=== PATIENT | female | born 1965 | race Caucasian/White ===

== ENCOUNTER 2021-08-05 06:31 | Day surgery (SDC) | payer BC ==
[2021-08-05] MEDS ORDERED: Sodium Chloride 0.9% 1,000 ML IV SCH (07:00)
[2021-08-05] MEDS ORDERED: fentaNYL 100 MCG/2 ML SDV ONE (07:36)
[2021-08-05] MEDS ORDERED: Midazolam 1 MG/ML 2 ML SDV ONE (07:36)
[2021-08-05] MEDS ORDERED: Propofol 200 MG/20 ML SDV ONE (07:36)
--- NOTE | 2021-08-05 11:38 | OR ---
DATE OF PROCEDURE: 08/05/2021 SURGEON: Tai Brock MD PROCEDURE: Colonoscopy. FINDINGS: Normal colonoscopy. COMPLICATIONS: None. ARMATURE TESTER: None. ANESTHESIA: MAC. PREOPERATIVE DIAGNOSIS: Screening colonoscopy. POSTOPERATIVE DIAGNOSIS: Screening colonoscopy. RISKS: Risks, benefits, alternatives, and limitations including, but not limited to infection, bleeding, perforation, false positives, false negatives were explained to the patient who wished to proceed. PROCEDURE IN DETAIL: The patient was placed in the left lateral decubitus position. Digital rectal exam was performed without abnormality. Scope was introduced and advanced atraumatically to the ileocecal valve. A photo was taken of the appendiceal orifice. Scope was brought back to the ascending, transverse, descending colon, and retroflexed. No evidence of old or new blood. No masses. No polyps. No diverticulosis. No colitis. Greater than 8 minutes was spent removing the scope. Prep was acceptable, approximately 90% of luminal surface could be seen. Recommend repeat colonoscopy in 10 years unless the patient develops a family history. Tai Brock MD /[id number]
== END 2021-08-05 09:00 | disposition home or self-care (01) ==
LOC: JP.SDS 06:31
PROVIDERS: ATTEND Surgery
DX: Z12.11 Encounter for screening for malignant neoplasm of colon (principal); I10 Essential (primary) hypertension; E66.9 Obesity, unspecified; Z86.010 Personal history of colon polyps; Z68.32 Body mass index [BMI] 32.0-32.9, adult
CPT/HCPCS: 45378; J2250; J2704; J3010; J7030

== ENCOUNTER 2023-09-04 06:30 | Day surgery (SDC) | payer BC ==
[2023-09-04] MEDS ORDERED: Propofol 200 MG/20 ML SDV ONE (06:59)
[2023-09-04] MEDS ORDERED: fentaNYL 50 MCG/ML SDV ONE (06:59)
[2023-09-04] MEDS ORDERED: Midazolam 1 MG/ML 2 ML SDV ONE (06:59)
[2023-09-04] MEDS: Lactated Ringers 1,000 ML IV SCH (07:15)
== END 2023-09-04 09:45 | disposition home or self-care (01) ==
LOC: JP.SDS 06:30
PROVIDERS: ATTEND Family Medicine
DX: K21.9 Gastro-esophageal reflux disease without esophagitis (principal); K29.50 Unspecified chronic gastritis without bleeding; K31.A11 Gastric intestinal metaplasia without dysplasia, involving the antrum; I10 Essential (primary) hypertension; F90.9 Attention-deficit hyperactivity disorder, unspecified type; R73.03 Prediabetes; E03.9 Hypothyroidism, unspecified; E66.9 Obesity, unspecified; Z98.890 Other specified postprocedural states; Z90.710 Acquired absence of both cervix and uterus; Z68.32 Body mass index [BMI] 32.0-32.9, adult
CPT/HCPCS: 88305; J2250; J2704; J3010; J7120

== ENCOUNTER 2025-09-24 22:36 | Emergency (ER) | payer BC ==
[2025-09-24 23:23] LABS: BASOPHILS PERCENT AUTO 0.2 % (0.1-1.3); EOSINOPHILS PERCENT AUTO 0.0 % (0.0-5.4); IMMATURE GRAN ABSOLUTE AUTO 0.06 K/uL (0.00-0.23); IMMATURE GRAN PERCENT AUTO 0.6 % (0.0-0.7); LYMPHOCYTES ABSOLUTE AUTO 0.62 K/uL (0.8-3.3); LYMPHOCYTES PERCENT AUTO 6.0 % (11.4-47.7); MONOCYTES ABSOLUTE AUTO 0.53 K/uL (0.20-0.90); MONOCYTES PERCENT AUTO 5.1 % (3.3-12.6); NEUTROPHILS ABSOLUTE AUTO 9.18 K/uL (1.0-7.6); NEUTROPHILS PERCENT AUTO 88.1 % (40.0-78.1); PLATELET COUNT,PLT 421 K/uL (130-375); RED BLOOD CELL COUNT 4.06 M/uL (3.77-5.24); WHITE BLOOD CELL COUNT,WBC 10.4 K/uL (3.2-11.0)
[2025-09-24 23:24] LABS: BASOPHILS ABSOLUTE AUTO 0.02 K/uL (0.00-0.10); EOSINOPHILS ABSOLUTE AUTO 0.00 K/uL (0.00-0.40)
== END 2025-09-25 01:36 | disposition home or self-care (01) ==
LOC: JP.ED 22:36
DX: R50.9 Fever, unspecified (principal); E03.9 Hypothyroidism, unspecified; Z90.710 Acquired absence of both cervix and uterus; Z79.899 Other long term (current) drug therapy; Z79.890 Hormone replacement therapy
CPT/HCPCS: 36415; 85025; 99283

== ENCOUNTER 2025-10-05 06:23 | Day surgery (SDC) | payer BC ==
[2025-10-05] MEDS: Lactated Ringers 1,000 ML IV SCH (07:13)
[2025-10-05] MEDS ORDERED: fentaNYL 50 MCG/ML SDV ONE (07:23)
[2025-10-05] MEDS ORDERED: Midazolam 1 MG/ML 2 ML SDV ONE (07:23)
[2025-10-05] MEDS ORDERED: Propofol 200 MG/20 ML SDV ONE ×2 (07:23→08:01)
== END 2025-10-05 10:10 | disposition home or self-care (01) ==
LOC: JP.SDS 06:23
PROVIDERS: ATTEND Surgery
DX: K62.89 Other specified diseases of anus and rectum (principal); K63.89 Other specified diseases of intestine; K44.9 Diaphragmatic hernia without obstruction or gangrene; I10 Essential (primary) hypertension; F32.A Depression, unspecified; F41.9 Anxiety disorder, unspecified; E03.9 Hypothyroidism, unspecified; Z79.890 Hormone replacement therapy; Z79.899 Other long term (current) drug therapy
CPT/HCPCS: 43239; 45380; J2250; J2704; J3010; J7120; 88305